=== PATIENT | female | born 1975 | race Caucasian/White ===

== ENCOUNTER 2017-01-14 11:29 | Outpatient (CLI) | payer BC ==
--- NOTE | 2017-01-14 13:08 | Mammography Report ---
BILATERAL MAMMOGRAM with CAD: HISTORY: Cancer screening. Comparison study is dated January 12, 2016. FINDINGS: The breast tissue is heterogeneously dense, which could obscure detection of small masses (approximately 50%-75% glandular). No mass, distortion, suspicious calcification, or skin change is seen. IMPRESSION: Negative mammogram. There is no mammographic evidence of malignancy. RECOMMENDATION: Follow-up per ACS guidelines. BI-RADS CATEGORY: 1 = Negative ACR BI-RADS MAMMOGRAPHIC CODES: 0 = Needs additional imaging evaluation; 1 = Negative; 2 = Benign; 3 = Probably benign; 4 = Suspicious; 5 = Malignant; 6 = Known biopsy-proven malignancy COMMENT: 1. Dense breast tissue, i.e., adenosis, fibrocystic changes, etc., may obscure an underlying neoplasm. 2. Approximately 10% of cancers are not detected with mammography. 3. A negative mammography report should not delay biopsy if a clinically suspicious mass is present. COMMENT: Patient follow-up letters are generated in [employer].
== END 2017-01-14 11:30 | disposition home or self-care (01) ==
LOC: MAMMO 11:29
PROVIDERS: ATTEND Family Medicine Adult Medicine
DX: Z12.31 Encounter for screening mammogram for malignant neoplasm of breast (principal)
CPT/HCPCS: 77067; G0202

== ENCOUNTER 2018-12-09 13:04 | Outpatient (CLI) | payer BC ==
--- NOTE | 2018-12-09 14:28 | Mammography Report ---
BILATERAL DIGITAL SCREENING MAMMOGRAM WITH CAD INDICATION: Routine screening mammography. TECHNIQUE: Digital bilateral 2D mammography was obtained in the craniocaudal and mediolateral obliq ue projections. This examination was interpreted with the benefit of Computer-Aided Detection analysi s. COMPARISON: 01/14/2017 FINDINGS: Breast Density: The breasts are heterogeneously dense, which may obscure small masses. No mass, architectural distortion or suspicious calcifications. IMPRESSION:No mammographic evidence of malignancy. BI-RADS Category 1: Negative. No mammographic evidence of malignancy. Recommend routine screening m ammography in one year. A "normal" or negative report should not discourage follow up or biopsy of a clinically significant f inding. A written summary of these findings will be mailed to the patient. The patient will be entered into a mammography reporting system which will generate a reminder letter for the patient's next appointmen t at the appropriate interval. The [employer] recommends yearly mammograms starting at age 40 and continuing as l stalin as a woman is in good health. Breast MRI is recommended for women with an approximate 20-25% or greater lifetime risk of breast cancer, including women with a strong family history of breast or ova stephane cancer or who have been treated for Hodgkin's disease. Signer Name: aJmin Yepez MD Signed: 12/09/2018 2:24 PM Workstation Name: [id number]
== END 2018-12-09 13:05 | disposition home or self-care (01) ==
LOC: MAMMO 13:04
PROVIDERS: ATTEND Family Medicine Adult Medicine
DX: Z12.31 Encounter for screening mammogram for malignant neoplasm of breast (principal)
CPT/HCPCS: 77067

== ENCOUNTER 2020-09-12 10:27 | Emergency (ER) | payer BC ==
--- NOTE | 2020-09-12 11:53 | Event Note ---
ED Screening Note ED Screening Note: generalized abd pain that began at 7 AM +n/v no diarrhea normal BM this morning past abdominal surgical hx no allergies to meds This initial assessment/diagnostic orders/clinical plan/treatment(s) is/are subject to change based on patients health status, clinical progression and re-assessment by fellow clinical providers in the ED. Further treatment and workup at subsequent clinical providers discretion. Patient/guardian urged not to elope from the ED as their condition may be serious if not clinically assessed and managed. Initial orders include: labs, UA, CT
[2020-09-12] MEDS ORDERED: ONDANSETRON 4 MG/2 ML INJ IV ONE (12:09)
[2020-09-12] MEDS ORDERED: MORPHINE 4 MG/1 ML INJ IV ONE (12:09)
[2020-09-12] MEDS ORDERED: SODIUM CHLORIDE 0.9% 1000 ML 1,000 ML IV ONE (12:09)
--- NOTE | 2020-09-12 12:10 | Emergency Department Report ---
ED Abdominal Pain HPI - General Chief Complaint: Abdominal Pain Stated Complaint: LEFT SIDE PAIN Time Seen by Provider: 09/12/20 11:52 Source: patient Mode of arrival: Ambulatory Limitations: No Limitations - History of Present Illness Initial Comments: 44-year-old female presents to the ER today with complaints of abdominal pain. Patient states abdominal pain started this morning. She complains of pain mainly to the lower abdomen but also left upper Quadrant and epigastric area. She states that the pain has been constant and getting worse. It is nonradiating. She reports associated nausea and 2 episodes of vomiting this morning. She denies any diarrhea. She states that she had a bowel movement this morning but the stool was hard. She denies any hematemesis, hematochezia or melena. She states that she has been having difficulty urinating since yesterday. She gets the urge to go but very small amounts has been coming out. She denies any hematuria, dysuria or urinary odor. She denies any back or flank pain. She denies any abnormal vaginal discharge. States that her last menstrual cycle was about 2 months ago, but she denies being . She denies any obvious fever or chills. MD Complaint: abdominal pain -: Sudden (this morning ) - Related Data Previous Rx's Medication Instructions Recorded Last Taken Type Ibuprofen [Motrin] 800 mg PO Q8HR PRN #30 tablet 09/12/20 Unknown Rx Ondansetron [Zofran Odt] 4 mg PO Q8HR PRN #15 tab.rapdis 09/12/20 Unknown Rx Allergies Allergy/AdvReac Type Severity Reaction Status Date / Time No Known Allergies Allergy Verified 09/12/20 10:48 ED Review of Systems ROS: Stated complaint: LEFT SIDE PAIN Other details as noted in HPI Comment: All other systems reviewed and negative Constitutional: denies: chills, fever Eyes: denies: eye pain, eye discharge, vision change ENT: denies: ear pain, throat pain Respiratory: denies: cough, shortness of breath, SOB with exertion, SOB at rest, wheezing Cardiovascular: denies: chest pain, palpitations, dyspnea on exertion, edema, syncope, paroxysmal nocturnal dyspnea Gastrointestinal: abdominal pain, nausea, vomiting Genitourinary: urgency, abnormal menses Musculoskeletal: denies: back pain, joint swelling, arthralgia Skin: denies: rash, lesions Neurological: denies: headache, weakness, numbness, paresthesias, confusion, abnormal gait, vertigo Psychiatric: denies: anxiety, depression Hematological/Lymphatic: denies: easy bleeding, easy bruising ED Past Medical Hx - Past Medical History Hx Hypertension: Yes - Surgical History Past Surgical History?: No - Social History Smoking Status: Never Smoker Substance Use Type: None - Medications Home Medications: Home Medications Medication Instructions Recorded Confirmed Last Taken Type Ibuprofen [Motrin] 800 mg PO Q8HR PRN #30 tablet 09/12/20 Unknown Rx Ondansetron [Zofran Odt] 4 mg PO Q8HR PRN #15 tab.rapdis 09/12/20 Unknown Rx ED Physical Exam - General Limitations: No Limitations General appearance: alert, in distress (patient appears uncomfortable and in pain) - Head Head exam: Present: atraumatic, normocephalic, normal inspection - Eye Eye exam: Present: normal appearance, PERRL, EOMI Pupils: Present: normal accommodation - Respiratory Respiratory exam: Present: normal lung sounds bilaterally. Absent: respiratory distress - Cardiovascular Cardiovascular Exam: Present: regular rate, normal rhythm, normal heart sounds - GI/Abdominal GI/Abdominal exam: Present: soft, distended, tenderness (LLQ, RLQ, LUQ and epigastric TTP), guarding (mild guarding on palpation left LLQ and epiastric area). Absent: rebound, rigid, pulsatile mass - Neurological Exam Neurological exam: Present: alert, oriented X3, CN II-XII intact, normal gait - Psychiatric Psychiatric exam: Present: normal affect, normal mood - Skin Skin exam: Present: intact ED Course Vital Signs 09/12/20 09/12/20 10:44 12:42 Temperature 97.6 F Pulse Rate 54 L Respiratory 20 18 Rate Blood Pressure 153/80 O2 Sat by Pulse 98 Oximetry ED Medical Decision Making - Lab Data Result diagrams: 09/12/20 12:12 09/12/20 12:12 - Radiology Data Radiology results: report reviewed Patient: ERIKA OLIVA MR#: [id number] : 1975 Acct:[id number] Age/Sex: 44 / F ADM Date: 09/12/20 Loc: ED Attending Dr: Ordering Physician: RENAE GARZON Date of Service: 04/27/21 Procedure(s): US transvaginal Accession Number(s): [id number] cc: RENAE GARZON ULTRASOUND PELVIS INDICATION / CLINICAL INFORMATION: abd pain/large cystic structures in pelvis on ct. TECHNIQUE: Transvaginal. Duplex Color Doppler used: Yes. COMPARISON: None available FINDINGS: UTERUS: - Appearance: Mildly heterogeneous. - Size (cm): 8.0 x 6.1 x 5.6 - Endometrial Complex (if present): No significant abnormality.. Thickness in cm (if measured) = 1.5 - Mass or cyst: Several small fibroids measuring up to 3.[address] cm [address] seen on CT. Largest fibroid is in the fundus. - Additional findings: None. RIGHT ADNEXA: Large, complex mass in the right adnexa with cystic and soft tissue components corresponding to the ovarian dermoid noted on CT. Mass measures 7.6 x 8.0 x 6.9 cm. Normal color Doppler blood flow. LEFT ADNEXA: Large, complex cyst with internal echoes associated with the left ovary in the cul-de-sac measuring 8.0 x 5.4 cm. Normal color Doppler blood flow. URINARY BLADDER: Contracted. FREE FLUID: Minimal. ADDITIONAL FINDINGS: None. IMPRESSION: 1. Large complex right adnexal mass characteristic of ovarian dermoid cyst corresponding to the CT abnormality. 2. Large complex cyst arising from the left ovary within the cul-de-sac of the pelvis corresponding to CT findings. 3. Several small uterine fibroids. Signer Name: Renetta Moses MD Signed: 09/12/2020 4:53 PM Workstation Name: [id number] Transcribed By: DT Dictated By: Edson Moses MD Electronically Authenticated By: Edson Moses MD Signed Date/Time: 09/12/201652 DD/ 47 TD/TT: - Medical Decision Making 1716: Patient currently resting comfortably. She states that she feels much better after the pain meds which was given here in the ER today. She is well- appearing and nontoxic. Reviewed labs/CT and US. Labs unremarkable. CT and US show large cystic structures on both ovaries but no torsion. Discussed lab and CT results with patient. Informed her that she will need to follow-up with [facility] for further evaluation of these large cystic areas on her ovaries. She states that she does have an [facility] in [place]. Recommend that she try to follow-up with her [facility] this week. Patient expressed understanding of instructions and agree with plan. Patient was stable at time of discharge. Critical care attestation.: If time is entered above; I have spent that time in minutes in the direct care of this critically ill patient, excluding procedure time. ED Disposition Clinical Impression: Ovarian cyst, Uterine fibroid Disposition: TO HOME OR SELFCARE Is pt being admited?: No Does the pt Need Aspirin: No Condition: Stable Instructions: Abdominal Pain (ED), Uterine Fibroids, Ovarian Cyst Additional Instructions: It is important that you follow up with you OBGYN as discussed. Take the results of CT and US reports with you to the visit. Take the motrin and zofran as prescribed for pain. Return to ED if worse. Prescriptions: Ibuprofen [Motrin] 800 mg PO Q8HR PRN #30 tablet PRN Reason: Pain Ondansetron [Zofran Odt] 4 mg PO Q8HR PRN #15 tab.rapdis PRN Reason: Nausea Referrals: SAMANTHA BECERRA MD [Primary Care Provider] - 3-5 Days Forms: Work/School Release Form(ED) Time of Disposition: 17:15
[2020-09-12 12:58] LABS: Basophils % (Auto) 0.1 % (0.0-1.8); Eosinophils % (Auto) 0.3 % (0.0-4.3); Hematocrit 41.9 % (30.3-42.9); Hemoglobin 14.4 gm/dl (10.1-14.3); Lymphocytes # (Auto) 1.3 K/mm3 (1.2-5.4); Lymphocytes % (Auto) 14.3 % (13.4-35.0); Mean Corpuscular HGB Conc 35 % (30-34); Mean Corpuscular Volume 93 fl (79-97); Monocytes # (Auto) 0.3 K/mm3 (0.0-0.8); Monocytes % (Auto) 3.1 % (0.0-7.3); Platelet Count 220 K/mm3 (140-440)
[2020-09-12 13:16] LABS: Alanine Aminotransferase 75 units/L (7-56); Blood Urea Nitrogen 11 mg/dL (7-17); Calcium 9.1 mg/dL (8.4-10.2); Hemolysis Index 7
[2020-09-12 13:28] LABS: BUN/Creatinine Ratio 28
[2020-09-12 14:02] LABS: Bacteria,Urine 1+ /HPF (Negative); Bilirubin,Urine NEG (Negative); Blood,Urine NEG (Negative); Color,Urine Yellow (Yellow); Hyaline Casts,Urine 1 /LPF; Urobilinogen,Urine < 2.0 mg/dL (<2.0)
--- NOTE | 2020-09-12 15:34 | Cat Scan Report ---
CT ABDOMEN AND PELVIS WITH IV CONTRAST INDICATION: Abdominal pain, nausea and vomiting. COMPARISON: None available. TECHNIQUE: All CT scans at this facility use dose modulation, automated exposure control, iterative reconstructi on or weight based dosing, when appropriate, to reduce radiation dose to as low as reasonably achieva ble. FINDINGS: Lung Bases: No significant abnormality. Skeletal System: No acute abnormality. ABDOMEN: Liver: Steatosis. Gallbladder: No significant abnormality. Bile Ducts: No significant abnormality. Pancreas: No significant abnormality. Spleen: No significant abnormality. Adrenals: No significant abnormality. Right Kidney: No significant abnormality. Left Kidney: No significant abnormality. Upper GI tract: No significant abnormality. Lymph Nodes: No significant adenopathy. Aorta: No significant abnormality. Additional Findings: No significant abnormality. PELVIS: Colon: No acute abnormality. Diverticulosis is noted. Urinary Bladder and Distal Ureters: No significant abnormality. Appendix: No significant abnormality. Lymph Nodes: No significant adenopathy. Additional Findings: There is a lesion in the right hemipelvis which contains peripheral calcificatio n, fat density, fluid, and soft tissue density. This measures 7.8 x 9.1 cm on axial image 113. Cranio caudally for 7.4 cm coronal image 44. There is a 2.9 cm exophytic lesion at the uterine fundus (coron al image 55). Loculated free fluid versus 7-8 cm cyst noted in the cul-de-sac. IMPRESSION: 1. No acute inflammatory process or obstruction. 2. 9.1 cm dermoid type lesion in the right hemipelvis. This could be arising from either ovary. 3. 7-8 cm cyst versus loculated free fluid in the cul-de-sac. 4. Exophytic uterine fibroid at the fundus. Signer Name: Maynor Centeno MD Signed: 09/12/2020 3:29 PM Workstation Name: [id number]
--- NOTE | 2020-09-12 16:57 | Ultrasound Report ---
ULTRASOUND PELVIS INDICATION / CLINICAL INFORMATION: abd pain/large cystic structures in pelvis on ct. TECHNIQUE: Transvaginal. Duplex Color Doppler used: Yes. COMPARISON: None available FINDINGS: UTERUS: - Appearance: Mildly heterogeneous. - Size (cm): 8.0 x 6.1 x 5.6 - Endometrial Complex (if present): No significant abnormality.. Thickness in cm (if measured) = 1.5 - Mass or cyst: Several small fibroids measuring up to 3.2 cm as seen on CT. Largest fibroid is in th e fundus. - Additional findings: None. RIGHT ADNEXA: Large, complex mass in the right adnexa with cystic and soft tissue components correspo nding to the ovarian dermoid noted on CT. Mass measures 7.6 x 8.0 x 6.9 cm. Normal color Doppler bloo d flow. LEFT ADNEXA: Large, complex cyst with internal echoes associated with the left ovary in the cul-de-sa c measuring 8.0 x 5.4 cm. Normal color Doppler blood flow. URINARY BLADDER: Contracted. FREE FLUID: Minimal. ADDITIONAL FINDINGS: None. IMPRESSION: 1. Large complex right adnexal mass characteristic of ovarian dermoid cyst corresponding to the CT ab normality. 2. Large complex cyst arising from the left ovary within the cul-de-sac of the pelvis corresponding t o CT findings. 3. Several small uterine fibroids. Signer Name: Renetta Moses MD Signed: 09/12/2020 4:53 PM Workstation Name: [id number]
[2020-09-12 17:41] VITALS: BP 110/78
== END 2020-09-12 17:41 | disposition home or self-care (01) ==
LOC: ED 10:27
DX: N83.202 Unspecified ovarian cyst, left side (principal); D25.9 Leiomyoma of uterus, unspecified; I10 Essential (primary) hypertension; Z79.899 Other long term (current) drug therapy
CPT/HCPCS: 36415; 74177; 76830; 80053; 81001; 83690; 84703; 85025; 96361; 96374; 96375; 99284; J2270; J2405; J7030; Q9967